=== PATIENT | male | born 1930 | race Caucasian/White ===

== ENCOUNTER → 2017-08-14 | Outpatient (CLI) | payer OTHER ==
[~2017-08-14] MED LIST: CARDURA4 MG PO; CELEBREX; EZETIMIBE; PRESERVISION T1 EACH PO; PROSCAR 5MG TABL5 MG PO; PROVENTIL IH; TRAMADOL 50 MG50 MG PO; TYLENOL325 MG PO; ZETIA10 MG PO; ZPAK PO
--- NOTE | ~2017-08-14 | PFR/MVV ---
[facility] [place] [address] PULMONARY FUNCTION MVV/REPORT Name: KELLY TRIMBLE DESHAUN Room #: REG [facility]#: [id number] Admission: 08/14/17 Attend Phys: Emerson Guerrero MD, [facility] Discharge: Date of : 32 Report #: [id number] THIS REPORT FOR: //name// >> SPIROMETRY: (BTPS) Height: 69 in cm Weight: 175 lbs kg Exam Date: 08/14/17 PRE-RX POST-RX PRED BEST %PRED BEST %PRED %CHG FVC LITERS . 3.46 . 3.50 . 101 . . . FEV1 LITERS . 2.64 . 2.32 . 88 . . . FEV1/FVC % . 76 . 66 . 87 . . . PKA88-34% L/Sec . 2.53 . 1.00 . 40 . . . PEF L/SEC . 7.50 . 8.50 . 113 . . . FEF50/FIF50 UNITLESS . <1.00 . 1.08 . . . . MVV L/Min . . 105 . f 1/Min . . . >> LUNG VOLUMES: (BTPS) PRE-RX POST-RX PRED AVG %PRED AVG %PRED %CHG VC Liters . 3.46 . . . . . TLC Liters . 6.05 . . . . . RV Liters . 2.73 . . . . . RV/TLC % . 46 . . . . . FRC PL Liters . 3.61 . . . . . FRC N2 Liters . 3.61 . . . . . ERV Liters . . . . . . IC Liters . . . . . . >> DIFFUSION: DLCO ml/Min/mmHg . 16.8 . 16.2 . 96 . . . DL Vin ml/Min/mmHg . 16.8 . 16.2 . 96 . . . DLCO/VA ml/Min/mmHg . 3.17 . 3.33 . 105 . . . VA Liters . . 4.86 . . . . COMMENTS: COMMENTS: >> RESISTANCE: [facility] [address] [place] [address] PULMONARY FUNCTION MVV/REPORT Name: KELLY TRIMBLE [facility] Room #: REG Candace Zelaya.#: [id number] Admission: 08/14/17 Attend Phys: Emerson Guerrero MD, [facility] Discharge: Date of : 32 Report #: [id number] PRE-RX PRED AVG %PRED Raw Total cmH20/L/Sec . . . Raw Insp cmH20/L/Sec . . . Raw Exp cmH20/L/Sec . . . Raw cmH20/L/Sec . 1.24 . . Gaw L/Sec/cmH20 . 0.867 . . sRaw cmH20 Sec . 4.47 . . sGaw l/cmH20 Sec . 0.223 . . Vtq Liters . . . # = OUTSIDE 95% CONFIDENCE INTERVAL CALIBRATION: PRED: 3.00 ACTUAL: EXP 3.01 INSP 3.02 [facility]-OL10-06 [facility]-05 N-1804-4 >> INTERPRETATION/IMPRESSION: CC: Emerson Keane COMMENTS: Spirometry within normal limits. Diffusion capacity is within normal limits. Lung volumes may be considered. <ELECTRONICALLY SIGNED> By: Carlos Downey MD 09/03/17 1046 Carlos Downey MD /nt
--- NOTE | ~2017-08-14 | PFR/MVV ---
[facility] [place] [address] PULMONARY FUNCTION MVV/REPORT Name: KELLY TRIMBLEGER Room #: REG [facility]#: [id number] Admission: 08/14/17 Attend Phys: Emerson Guerrero MD, [facility] Discharge: Date of : 32 Report #: [id number] THIS REPORT FOR: //name// >> SPIROMETRY: (BTPS) Height: in cm Weight: lbs kg Exam Date: PRE-RX POST-RX PRED BEST %PRED BEST %PRED %CHG FVC LITERS . . . . . . FEV1 LITERS . . . . . . FEV1/FVC % . . . . . . SRG35-00% L/Sec . . . . . . PEF L/SEC . . . . . . FEF50/FIF50 UNITLESS . . . . . . MVV L/Min . . . f 1/Min . . . >> LUNG VOLUMES: (BTPS) PRE-RX POST-RX PRED AVG %PRED AVG %PRED %CHG VC Liters . . . . . . TLC Liters . . . . . . RV Liters . . . . . . RV/TLC % . . . . . . FRC PL Liters . . . . . . FRC N2 Liters . . . . . . ERV Liters . . . . . . IC Liters . . . . . . >> DIFFUSION: DLCO ml/Min/mmHg . . . . . . DL Vin ml/Min/mmHg . . . . . . DLCO/VA ml/Min/mmHg . . . . . . VA Liters . . . . . . COMMENTS: COMMENTS: >> RESISTANCE: [facility] [address] [place] [address] PULMONARY FUNCTION MVV/REPORT Name: KELLY TRIMBLE Room #: REG [facility]#: [id number] Admission: 08/14/17 Attend Phys: Emerson Guerrero MD, [facility] Discharge: Date of : 32 Report #: [id number] PRE-RX PRED AVG %PRED Raw Total cmH20/L/Sec . . . Raw Insp cmH20/L/Sec . . . Raw Exp cmH20/L/Sec . . . Raw cmH20/L/Sec . . . Gaw L/Sec/cmH20 . . . sRaw cmH20 Sec . . . sGaw l/cmH20 Sec . . . Vtq Liters . . . # = OUTSIDE 95% CONFIDENCE INTERVAL CALIBRATION: PRED: 3.00 ACTUAL: EXP 3.01 INSP 3.02 [facility]-OL03-13 [facility]- N-1804-4 >> INTERPRETATION/IMPRESSION: CC: Emerson Keane DATE OF SERVICE: 08/14/2017 PULMONARY FUNCTION REPORT NOTATION: Full pulmonary function study reveals mild airflow obstruction as evidenced by reduced FEV1/FVC ratio. The FEV1 is normal at 2.32 liters or 88% of predicted. No post-bronchodilator study was performed. DLCO was normal. The patient's finding is most consistent with mild airflow obstruction. Consider further evaluation if clinically indicated. <ELECTRONICALLY SIGNED> By: Italo Walden MD 08/27/17 1123 Italo Walden MD /nt
== END ==
LOC: PUL 11:50
DX: R06.02 Shortness of breath (principal)